=== PATIENT | female | born 1995 | race Hispanic/Latino ===

== ENCOUNTER → 2021-07-30 | Outpatient (CLI) | payer OTHER ==
--- NOTE | 2021-07-30 19:51 | REP ---
INDICATION: ANATOMY. COMPARISON: None. TECHNIQUE: Transabdominal OB ultrasound for 2nd trimester anatomy screen FINDINGS: Scanning demonstrates a viable single intrauterine gestation in a transverse lie. motion is observed and heart rate is recorded at 136 beats per minute. An posterior, grade zero placenta is seen without evidence of previa. Umbilical cord shows mid insertion. Amniotic fluid is subjectively normal. Closed cervical length is measured at 3.1 cm transabdominally. No extrauterine abnormality is observed. There has been appropriate interval growth. No anomaly is seen. The following anatomic structures are identified and felt to be sonographically unremarkable: cranium, choroid plexus, cavum, cerebellum and posterior fossa, face and profile, lungs, four-chamber heart with left and right ventricular outflow tract views, diaphragm, left-sided stomach, abdominal wall cord insertion, three-vessel umbilical cord with normal abdominal wall insertion, kidneys and bladder, spine, and upper and lower extremities. Biometry chart: BPD 4.7 cm; 20 weeks 1 days Head circumference 17.4 cm; 19 weeks 6 days Abdominal circumference 15 cm; 20 weeks 2 days Femur length 3.3 cm; 20 weeks 1 days Humeral length 3.1 cm; 20 weeks 1 days HC/AC ratio normal 1.16 Cephalic index normal 0.75 Estimated weight 337 grams, 0 pounds 11 ounces, 38 percentile for 20 weeks 2 days. IMPRESSION: Viable single intrauterine gestation at 20 weeks 1 days by today's composite sonographic criteria. Expected gestational age estimate based on LMP is 20 weeks is 2 days. MEDHAT by LMP 12/15/2021 . No anomaly. <Electronically signed by Ashwin De Leon > 07/30/211947
== END ==
LOC: M RAD 15:55
PROVIDERS: ATTEND Obstetrics & Gynecology
DX: Z36.9 Encounter for antenatal screening, unspecified (principal); Z3A.20 20 weeks gestation of pregnancy